=== PATIENT | female | born 1995 | race Caucasian/White ===

== ENCOUNTER 2023-07-17 11:28 | Emergency (ER) | payer OTHER ==
[~2023-07-17] VITALS: Ht 160 cm; Wt 52.2 kg
[2023-07-17 11:45] VITALS: BP_SYST 109; PULSE 109; RESP 16; TEMP 96.8; O2SAT 96
[2023-07-17] MEDS ORDERED: IBUP-1969 PO (12:49)
[2023-07-17 13:09] VITALS: BP_SYST 109; PULSE 109; RESP 16; TEMP 96.8; O2SAT 96
== END 2023-07-17 13:18 | disposition home or self-care (01) ==
LOC: SED 11:28
DX: S93.402A Sprain of unspecified ligament of left ankle, initial encounter (principal); X50.1XXA Overexertion from prolonged static or awkward postures, initial encounter; Y93.89 Activity, other specified; Y92.89 Other specified places as the place of occurrence of the external cause; Y99.8 Other external cause status
CPT/HCPCS: 99283

== ENCOUNTER 2023-09-29 08:33 | Emergency (ER) | payer OTHER ==
[~2023-09-29] VITALS: Ht 154.9 cm; Wt 49.9 kg
[~2023-09-29 08:33] MED LIST: IBUP-1969 PO
[2023-09-29 08:39] VITALS: BP_SYST 130; PULSE 108; RESP 18; TEMP 98.3; O2SAT 98
[2023-09-29 09:20] LABS: BASOPHILS % (AUTO) 0.8 % (0.0-2.0); EOSINOPHILS # (AUTO) 0.2 K/uL (0.0-0.4); EOSINOPHILS % (AUTO) 4.1 % (0.0-4.0); HEMATOCRIT 39.2 % (36-48); HEMOGLOBIN 13.1 g/dL (12.0-16.0); LYMPHOCYTES # (AUTO) 1.1 K/uL (1.0-5.5); MEAN CORPUSCULAR HEMOGLOBIN 30 pg (27-31); MEAN CORPUSCULAR HGB CONC 33 % (32-36); MEAN CORPUSCULAR VOLUME 90 fL (79.0-98.0); MONOCYTES # (AUTO) 0.4 K/uL (0.0-1.0); MONOCYTES % (AUTO) 10.5 % (1.7-9.3); NEUTROPHILS # (AUTO) 2.3 K/uL (1.8-7.7); NEUTROPHILS % (AUTO) 57.6 % (40.0-70.0); PLATELET COUNT (AUTO) 192 K/uL (130-430); RED BLOOD CELL COUNT(AUTO) 4.35 MIL/uL (4.2-6.2); RED CELL DISTRIBUTION WIDTH 13.2 % (9.0-15.0); WHITE BLOOD COUNT (AUTO) 4.1 K/uL (4.8-10.8)
[2023-09-29 09:27] LABS: SERUM HCG (QUALITATIVE) NEGATIVE (NEGATIVE)
[2023-09-29 09:32] LABS: ALBUMIN 3.9 g/dL (3.4-4.8); CALCIUM 9.2 mg/dL (8.4-11.0); CREATININE 0.74 mg/dL (0.55-1.30); POTASSIUM 5.2 mmol/L (3.5-5.1); TOTAL BILIRUBIN 0.5 mg/dL (0.0-1.0); TOTAL PROTEIN, SERUM 7.3 g/dL (6.4-8.3)
[2023-09-29 09:39] LABS: INR 1.1 (0.8-1.2); PROTHROMBIN TIME 11.6 SECS (9.5-12.5)
[2023-09-29 09:41] LABS: BILIRUBIN,DIRECT 0.1 mg/dL (0.0-0.3)
[2023-09-29 10:26] LABS: BILIRUBIN,URINE NEGATIVE (NEGATIVE); BLOOD, URINE NEGATIVE (NEGATIVE); CLARITY/URINE CLEAR (CLEAR); COLOR,URINE YELLOW (YELLOW); GLUCOSE,URINE NEGATIVE (NEGATIVE); KETONES,URINE NEGATIVE (NEGATIVE); LEUKOCYTE ESTERASE ,URINE TRACE (NEGATIVE); NITRITE, URINE NEGATIVE (NEGATIVE); PROTEIN URINE NEGATIVE (NEGATIVE); UROBILINOGEN,URINE 0.2 (0.2-1.0)
[2023-09-29 10:49] LABS: BACTERIA,URINE MODERATE /HPF (None Seen); RBC,URINE 0-3 /HPF (0-3)
[2023-09-29 11:02] LABS: MUCUS,URINE 1+ /LPF (None Seen)
[2023-09-29 11:21] VITALS: BP_SYST 130; PULSE 108; RESP 18; TEMP 98.3; O2SAT 98
== END 2023-09-29 11:20 | disposition home or self-care (01) ==
LOC: SED 08:33
DX: R10.2 Pelvic and perineal pain (principal); R10.31 Right lower quadrant pain; M54.9 Dorsalgia, unspecified; Z79.899 Other long term (current) drug therapy
CPT/HCPCS: 36415; 80048; 80076; 81000; 81001; 81015; 81025; 82150; 83605; 83615; 83690; 84703; 85025; 85610; 85730; 87086; 99284

== ENCOUNTER 2023-12-08 16:40 | Emergency (ER) | payer OTHER ==
[~2023-12-08] VITALS: Ht 160 cm; Wt 52.2 kg
[2023-12-08 16:50] VITALS: BP_SYST 126; PULSE 90; RESP 18; TEMP 98.3; O2SAT 98
[2023-12-08 17:30] LABS: BILIRUBIN,URINE NEGATIVE (NEGATIVE); BLOOD, URINE NEGATIVE (NEGATIVE); CLARITY/URINE CLEAR (CLEAR); COLOR,URINE YELLOW (YELLOW); GLUCOSE,URINE NEGATIVE (NEGATIVE); KETONES,URINE 1+ (NEGATIVE); LEUKOCYTE ESTERASE ,URINE NEGATIVE (NEGATIVE); NITRITE, URINE NEGATIVE (NEGATIVE); PROTEIN URINE NEGATIVE (NEGATIVE); UROBILINOGEN,URINE 0.2 (0.2-1.0)
[2023-12-08 17:33] LABS: BASOPHILS % (AUTO) 0.7 % (0.0-2.0); EOSINOPHILS # (AUTO) 0.3 K/uL (0.0-0.4); EOSINOPHILS % (AUTO) 3.9 % (0.0-4.0); HEMATOCRIT 37.9 % (36-48); HEMOGLOBIN 12.9 g/dL (12.0-16.0); LYMPHOCYTES # (AUTO) 1.8 K/uL (1.0-5.5); LYMPHOCYTES % (AUTO) 27.7 % (20.5-51.5); MEAN CORPUSCULAR HEMOGLOBIN 31 pg (27-31); MEAN CORPUSCULAR HGB CONC 34 % (32-36); MEAN CORPUSCULAR VOLUME 90 fL (79.0-98.0); MONOCYTES # (AUTO) 0.7 K/uL (0.0-1.0); MONOCYTES % (AUTO) 10.7 % (1.7-9.3); NEUTROPHILS # (AUTO) 3.8 K/uL (1.8-7.7); PLATELET COUNT (AUTO) 229 K/uL (130-430); RED BLOOD CELL COUNT(AUTO) 4.21 MIL/uL (4.2-6.2); RED CELL DISTRIBUTION WIDTH 13.8 % (9.0-15.0); WHITE BLOOD COUNT (AUTO) 6.6 K/uL (4.8-10.8)
[2023-12-08 18:21] LABS: BILIRUBIN,DIRECT 0.1 mg/dL (0.0-0.3); CALCIUM 9.2 mg/dL (8.4-11.0); CREATININE 0.8 mg/dL (0.55-1.30); POTASSIUM 3.8 mmol/L (3.5-5.1); TOTAL BILIRUBIN 0.2 mg/dL (0.0-1.0); TOTAL PROTEIN, SERUM 7.3 g/dL (6.4-8.3)
== END 2023-12-08 23:00 | disposition home or self-care (01) ==
LOC: SED 16:40
DX: G89.29 Other chronic pain (principal); R10.31 Right lower quadrant pain; D73.4 Cyst of spleen; R11.0 Nausea; Z79.899 Other long term (current) drug therapy
CPT/HCPCS: 99285; 74177; 80076; 80048; 81001; 83690; 85025; 36415; 81025; 81003; Q9967